=== PATIENT | female | born 1945 | race Caucasian/White ===

== ENCOUNTER 2016-07-03 13:40 | Emergency (ER) | payer MEDICARE, OTHER ==
[~2016-07-03] VITALS: Ht 170.2 cm; Wt 75.0 kg
[~2016-07-03 13:40] MED LIST: AUGMENTIN875TAB PO; BACTRIM DS1 TAB OR; CEPHALEXIN500 MG PO; MEDDOSEPAK PO; NO HOME MEDS; PREVACID30 M2 OR; ULTRAM50 MG PO
[2016-07-03 13:54] VITALS: BP 141/72
== END 2016-07-03 13:54 | disposition left against medical advice (07) ==
LOC: ED 13:40 → LWOBS 13:54
DX: Z91.19 Patient's noncompliance with other medical treatment and regimen (principal)

== ENCOUNTER 2016-07-21 07:17 | Emergency (ER) | payer MEDICARE, OTHER ==
[~2016-07-21] VITALS: Ht 170.2 cm; Wt 68.2 kg
[2016-07-21 07:31] VITALS: BP 120/80
== END 2016-07-21 08:02 | disposition left against medical advice (07) ==
LOC: ED 07:17
DX: J44.1 Chronic obstructive pulmonary disease with (acute) exacerbation (principal); F17.210 Nicotine dependence, cigarettes, uncomplicated; F20.9 Schizophrenia, unspecified; J45.909 Unspecified asthma, uncomplicated; R07.9 Chest pain, unspecified

== ENCOUNTER 2016-10-22 17:40 | Emergency (ER) | payer MEDICARE, OTHER ==
[~2016-10-22] VITALS: Ht 170.2 cm; Wt 65.0 kg
[2016-10-22] MEDS ORDERED: KEFLEX500 MG PO (18:32)
[2016-10-22] MEDS ORDERED: BENADRYL25 M1 PO (18:32)
[2016-10-22 18:50] VITALS: BP 134/74
== END 2016-10-22 18:50 | disposition left against medical advice (07) ==
LOC: ED 17:40
DX: S80.862A Insect bite (nonvenomous), left lower leg, initial encounter (principal); S80.861A Insect bite (nonvenomous), right lower leg, initial encounter; F20.9 Schizophrenia, unspecified; F17.210 Nicotine dependence, cigarettes, uncomplicated; W57.XXXA Bitten or stung by nonvenomous insect and other nonvenomous arthropods, initial encounter

== ENCOUNTER 2017-07-16 02:27 | Emergency (ER) | payer MEDICARE, OTHER ==
[~2017-07-16] VITALS: Ht 170.2 cm; Wt 72.0 kg
[~2017-07-16 02:27] MED LIST changes: +BENADRYL25 M1 PO; +KEFLEX500 MG PO
[2017-07-16 06:40] VITALS: BP 110/54
== END 2017-07-16 06:44 | disposition home or self-care (01) ==
LOC: ED 02:27
DX: M79.602 Pain in left arm (principal)

== ENCOUNTER 2017-07-27 16:56 | Emergency (ER) | payer MEDICARE, OTHER | END 2017-07-27 17:05 | disposition E | LOC: ED 16:56 | DX: I46.9 Cardiac arrest, cause unspecified (principal); F17.210 Nicotine dependence, cigarettes, uncomplicated; Z72.89 Other problems related to lifestyle ==